=== PATIENT | male | born 1945 | race Caucasian/White ===

== ENCOUNTER 2019-06-09 20:09 | Inpatient (IN) ==
[2019-06-09] MEDS ORDERED: HUMULIN R (PARKWAY) SUBQ ONE (21:05)
[2019-06-09] MEDS ORDERED: CATAPRES PO PRN (21:07)
[2019-06-09 21:13] LABS: BASO# 0.03 X1000 (0.0-0.2); BASO% 0.4 % (0.0-0.8); EOS# 0.01 X1000 (0.0-0.7); EOS% 0.1 % (0.0-10.0); HEMATOCRIT 37.7 % (42.0-52.0); HEMOGLOBIN 12.7 g/dL (14.0-18.0); LYMPH# 1.35 X1000 (1.2-3.4); LYMPH% 17.6 % (20.5-51.1); MCH 29.3 PG (27-31); MCHC 33.7 g/dL (33-37); MCV 86.9 FL (81-99); MONO# 0.35 X1000 (0.11-0.59); MONO% 4.6 % (1.7-9.3); MPV 9.3 FL (7.4-10.4); NEUT# 5.94 X1000 (1.4-6.5); NEUT% 77.3 % (42.2-75.2); PLT 275 X1000 (130-400); RBC 4.34 XMIL (4.7-6.1); RDW 13.3 % (11.5-14.5); WBC 7.68 X1000 (4.8-10.8)
[2019-06-09 21:27] LABS: CALCIUM 8.5 mg/dL (8.8-10.2); CREATININE 3.3 mg/dL (0.7-1.2); POTASSIUM 4.3 mmol/L (3.5-5.1)
[2019-06-10] MEDS: ZOFRAN IV PRN ×2 (02:08→12:37)
[2019-06-10] MEDS ORDERED: SODIUM CHLORIDE 0.9% INJ ONE (05:12)
[2019-06-10] MEDS ORDERED: PHENERGAN IV ONE (05:12)
[2019-06-10] MEDS ORDERED: 1/2 NS 1,000 ML IV SCH (05:15)
[2019-06-10] MEDS ORDERED: HUMULIN R (PARKWAY) SUBQ SCH (08:00)
[2019-06-10] MEDS ORDERED: ZYLOPRIM PO SCH (09:00)
[2019-06-10] MEDS ORDERED: CRESTOR PO SCH ×2 (09:00→21:00)
[2019-06-10] MEDS ORDERED: ASPIRIN PO SCH (09:00)
[2019-06-10] MEDS ORDERED: APRESOLINE PO SCH ×2 (09:00→15:00)
[2019-06-10 09:16] LABS: BASO# 0.01 X1000 (0.0-0.2); BASO% 0.1 % (0.0-0.8); HEMATOCRIT 41.7 % (42.0-52.0); HEMOGLOBIN 13.8 g/dL (14.0-18.0); IMM GRAN# 0.02 X1000 (0.0-0.04); IMM GRAN% 0.2 % (0.0-0.5); LYMPH# 1.33 X1000 (1.2-3.4); LYMPH% 11.3 % (20.5-51.1); MCHC 33.1 g/dL (33-37); MCV 87.6 FL (81-99); MONO# 0.19 X1000 (0.11-0.59); MONO% 1.6 % (1.7-9.3); MPV 9.6 FL (7.4-10.4); NEUT# 10.17 X1000 (1.4-6.5); NEUT% 86.8 % (42.2-75.2); PLT 286 X1000 (130-400); RBC 4.76 XMIL (4.7-6.1); RDW 13.7 % (11.5-14.5); WBC 11.72 X1000 (4.8-10.8)
[2019-06-10 09:53] LABS: ALBUMIN 4.2 g/dL (3.5-5.0); CALCIUM 9.1 mg/dL (8.8-10.2); CREATININE 3.5 mg/dL (0.7-1.2); POTASSIUM 4.5 mmol/L (3.5-5.1); TOTAL BILIRUBIN 0.3 mg/dL (0.20-1.00); TOTAL PROTEIN 7.4 g/dL (6.3-8.3)
[2019-06-10 11:19] LABS: URINE SOURCE VOIDED
[2019-06-10] MEDS ORDERED: APRESOLINE IV PRN (11:21)
[2019-06-10] MEDS ORDERED: ASPIRIN PR ONE (11:22)
[2019-06-10 11:24] LABS: BILIRUBIN URINE NEGATIVE (NEGATIVE); BLOOD URINE TRACE (NEGATIVE); CLARITY CLEAR (CLEAR); COLOR YELLOW; KETONE URINE 2+(Moderate) mg/dL (NEGATIVE); LEUKOCYTES URINE NEGATIVE (NEGATIVE); NITRITE URINE NEGATIVE (NEGATIVE); SP GRAVITY URINE 1.015; UROBILINOGEN URINE NORMAL
[2019-06-10 11:28] LABS: URINE BACTERIA 1+ /HFP; URINE CAST NONE SEEN /LPF; URINE EPITHELIAL CELLS <10 /HPF (<10); URINE RBC <10 /HPF (<10); URINE WBC <10 /HPF (<10); URINE YEAST NONE SEEN /HPF
[2019-06-10 11:29] LABS: URINE CRYSTAL NONE SEEN /HPF
[2019-06-10 11:53] LABS: TSH 0.75 uIUmL (0.27-4.20)
[2019-06-10] MEDS ORDERED: SODIUM CHLORIDE 0.9% INJ SCH (12:00)
--- NOTE | 2019-06-10 12:26 | HISTORY AND PHYSICAL ---
ADDENDUM: I saw the patient [id number] and agree with the assessment and plan of nurse practitioner, Chio Velasco. This is a 74-year-old gentleman who was in his usual health up until this past Tuesday, 2 days ago, when he had a significant headache and generalized weakness. Yesterday morning, his was unable to wake him up and he was having altered mental status with elevated blood pressure after which he was brought into the emergency room. He has been having altered mental status and confusion, along with slight weakness on his left side. Also, he has a bruit in his left carotid and has a history of chronic kidney disease. I believe he is having acute ischemic stroke for which we are going to transfer him to [facility] and obtain neurology consultation with Dr. Cheney. He will be placed on aspirin and control his blood pressure. Supportive care will be provided and further recommendations will be as per hospital course. cc: Galen Rucker MD
[2019-06-10] MEDS: PROTONIX IV SCH (12:37)
[2019-06-10 14:30] LABS: OCCULT BLOOD 1 NEGATIVE (NEGATIVE)
--- NOTE | 2019-06-10 16:59 | HISTORY AND PHYSICAL ---
CHIEF COMPLAINT: Altered mental status, generalized weakness, nausea, vomiting, diarrhea, abdominal pain and high blood pressure. HISTORY OF PRESENT ILLNESS: This is a 74-year-old gentleman with a history of hypertension, insulin-dependent diabetes mellitus, chronic kidney disease as well as CAD status post stents. He presented to the emergency room initially at 10 o'clock on June 09 after being confused and lethargic with hypertension. The states that the patient underwent a colonoscopy on June 07, was his normal self until Tuesday.He ate a few bites for supper, complained of abdominal pain and went to bed. Tuesday morning he was still in bed, asleep at 8am,which is unusual for him. She had a very hard time waking him up. He only ate a few bites of breakfast in bed, as he wouldnt get up. . When she attempted to give him his medicines he became agitated, kept asking for 2 white pills,looking for them everywhere. She reports a BP 200/120at this time. She reports having to dress him in the bed and hold him up and assist him to walk to the car. On arrival to the ER, he complained of abdominal pain and nause, vomiting twice in the emergency room. On arrival to the emergency room initially blood pressure is 226/100, he received a total of 60 mg of labetalol. Pressures decreased, CT scan of the head revealed nothing acute. and he was discharged home with a prescription for clonidine and an increase in his Inderal. The stated that on discharge, he was confused, unable to stand or walk unassisted, requiring assistance to walk to his car and back into their house. At 6pm, she checked on him, he was once again difficult to wake,confused and agitated. Therefore, they returned to the ER, he continued to complain of nausea, vomiting and abdominal pain and he had episodes of being altered throughout this time. At the time of my exam, the patient is s/p Phenergan. He is sleeping and snoring. Difficult to arouse. PAST MEDICAL HISTORY: 1. Wdh-iwvazkd-gikjvbeuv diabetes mellitus. 2. Hypertension. 3. Chronic kidney disease with a reported baseline creatinine of 3 to 3.1. 4. Coronary artery disease status post PCI. 5. Chronic pain. 6. Hypertension. PAST SURGICAL HISTORY: Cholecystectomy, cervical fusion and shoulder surgery. SOCIAL HISTORY: He is lives with his . She denies any alcohol, tobacco or illicit drug use. ALLERGIES: No known drug allergies. HOME MEDICATIONS: A list will be obtained by the nursing staff and once verified will review and restart as appropriate. REVIEW OF SYSTEMS: Unable to obtain from the patient. PHYSICAL EXAMINATION: This is a 74-year-old gentleman who is lying in the bed sleeping and snoring in no distress. VITAL SIGNS: Blood pressure is 151/61 with a heart rate of 79, respirations are 16, temperature is 98.1 degrees axillary with room air saturations 96%. HEENT: Pupils are 3mm equal, round, react to light. Sclerae anicteric. Head is normocephalic, atraumatic. Mucous membranes are moist. NECK: Supple with trachea midline. CARDIOVASCULAR: Regular rate and rhythm. S1 and S2 are appreciated. He has no lower extremity edema with peripheral pulses palpable x4 extremities. PULMONARY: Breath sounds are clear with no increased work of breathing noted. Chest rises and falls symmetric with respiration. GASTROINTESTINAL: Abdomen is soft, nondistended with bowel sounds in all 4 quadrants. : Deferred at this time. SKIN: Warm and dry. NEUROLOGIC: The patient has had Phenergan prior. He is asleep. He is snoring. He moves extremities at random and all 4 extremities withdraw from pain. LABS: WBC is 7.6 with hemoglobin 12.7, hematocrit 37.7 and platelets 275,000. Sodium 134, potassium 4.4, CO2 18, BUN 38, creatinine 3.2 with a glucose of 197. Urinalysis is essentially negative. Urine drug screen was none detected. CT of the head on 06/09/2019 at 12:41 revealed a negative exam. No intracranial mass or hemorrhage. Skull is intact, sinuses and mastoid and middle ears are clear . Chest x-ray on 06/09/2019 at 12:42 negative exam. Lungs are normally expanded and clear. Heart size and mediastinal contours are normal, no pneumothorax or pleural effusion. ASSESSMENT AND PLAN: 1. Hypertension. BP are in the 150/60-80 range Will monitor and treat as appropriate. 3. Non-insulin dependent diabetes mellitus. Pattern blood glucose with sliding scale insulin. 4. Acute kidney injury in the setting of chronic kidney disease. The reports a baseline creatinine of 3 to 3.1. check urine electrolytes, hydrate, hold renal toxic medications, renal dose as appropriate and trend electrolytes magnesium and phosphorus and IV hydration. 5. History of coronary artery disease aware. 6. History of chronic pain aware. 7. Abdominal pain, will reassess once more awake. NPO 8. Nausea and vomiting - Zofran, NPO 9. Agitation and confusion - neuro checks, Telemetry Neuro checks Refrain from further Phenergan Plan was discussed with Dr. Rucker. Further treatments pending hospital course. Dictated by KELVIN Barry for Galen Rucker MD cc: KELVIN Barry MD [facility]
[2019-06-10] MEDS: HUMULIN R SUBQ SCH ×2 (17:41→21:08)
[2019-06-10] MEDS: NS 1,000 ML IV SCH (18:10)
--- NOTE | 2019-06-10 18:10 | Diag Imaging Result Doc PS360 ---
EXAM: CHEST-PORTABLE - 06/10/2019 HISTORY: dyspnea TECHNIQUE: Portable chest COMPARISON: 06/09/2019 FINDINGS: Heart size is normal. There is mild subsegmental atelectasis at the left base. Lungs otherwise appear clear. There is no pleural effusion or pneumothorax identified. IMPRESSION: Mild subsegmental atelectasis at left base. No other evidence of acute disease. Electronically signed by Jose L Bolden 06/10/2019 6:08 PM
[2019-06-10 18:58] LABS: UR CREAT RANDOM < 4.2 mg/dL (14-26); UR PROT RANDOM < 4.0 mg/dL; UR SODIUM < 10 mmoll
--- NOTE | 2019-06-10 19:48 | GASTROENTEROLOGY CONSULTATION ---
DATE: 06/10/2019 GASTROENTEROLOGY CONSULTATION: REQUESTING PHYSICIAN: Dr. Sanford. PRIMARY CARE DOCTOR: He is a outside physician at [place], [place]. REASON FOR CONSULTATION: Nausea, vomiting, and abdominal pain. HISTORY OF PRESENT ILLNESS: Mr. Schuster is a 74-year-old male, who was admitted on 06/09/2019 to [facility] for altered mental status, confusion, generalized weakness, nausea, vomiting, diarrhea, abdominal pain, and hypertensive urgency. He was transferred to [facility] for consultation with Neurology. According to the patient's , the patient had norovirus in December. At that time, he got dehydrated, and he was admitted in the hospital in [place] for a few days. He was hydrated. He was taken off his blood pressure medicines in December 2018. His blood pressure started to creep up in February, and he was started on medicines per his primary care doctor. He initial use of antihypertensives did not control his blood pressure well. They were working with outpatient provider to help manage his blood pressure. He had a colonoscopy done on with Dr. Dutton. He had 3 polyps removed. Post colonoscopy, he did well for and Tuesday. On Tuesday, he started having some symptoms of weakness and not feeling right. His blood pressure was creeping up. He was initially sent to [place] [facility] but was discharged with adjustment of his antihypertensives. His symptoms continued to worsen. He continued to feel weak and had confusion. He was brought back to the ER after talking to his primary care doctor. In the ER, his blood pressure was noted to be 226/100. He was given IV labetalol. At that time, he had nausea and 1 episode of vomiting. He also complained of abdominal discomfort which improved. He denied any vomiting blood or noting blood in the stools. PAST MEDICAL HISTORY: Noninsulin-dependent diabetes mellitus, hypertension, chronic kidney disease, coronary artery disease, status post PCI, chronic pain, hypertension. PAST SURGICAL HISTORY: Cholecystectomy, cervical fusion, and shoulder surgery. Colonoscopy on on 06/07/2019. Had 3 polyps. SOCIAL HISTORY: He is . He lives with his . He has a very supportive family at bedside. No history of alcohol, tobacco, or illicit drugs. ALLERGIES: No known drug allergies. MEDICATIONS: In the hospital include aspirin 3 mg once daily rectally. Sliding scale Humulin R. Normal saline 100 mL per hour. Zofran 4 mg IV every 4 hours as needed. Protonix IV once daily 40 mg. Labetalol 10 mg IV every 4 hours as needed. The patient is currently n.p.o. REVIEW OF SYSTEMS: Denies any fevers, rigors, chills, chest pain, shortness of breath, dyspnea. Denies any vomiting blood. Did have 1 episode of nausea, vomiting, and abdominal discomfort which has improved. Denies any blood in the stools. Denies any major arthritis. Denies any black stools. He did have confusion on admission, but it improving.Vital signs: Temperature of 98.3, pulse rate of 93, respiratory rate or 17, blood pressure 170/86, saturating 98% on room air. Body weight of 160 pounds 5 ounces. BMI 24.4 kg/m2. General Appearance: Moderately built, moderately nourished, lying in bed, in no acute distress. HEENT: No pallor. No icterus. Pupils equal and reactive to light. Neck: Supple. Abdomen: Soft, nontender, nondistended. No guarding or rebound. Extremities: No cyanosis or clubbing. Neurologic: Alert, awake, and oriented x3. LABORATORY DATA: Hemoglobin and hematocrit are 13.8 and 41.7, white count of 11.72, platelet count of 286,000. Sodium 140, potassium 4.5, chloride 103, bicarb of 16, anion gap 21, BUN of 41, creatinine 3.5, glucose of 216, calcium 9.1. Total bilirubin is 0.3, AST 12, ALT 10, alkaline phosphatase 60, total protein 7.4, albumin of 4.2, TSH 0.75, B12 567. Urinalysis with 3+ protein, 2+ ketones, 3+ glucose. Stool culture was negative. Chest x-ray done today showed mild subsegmental atelectasis left base. No evidence of any acute disease. CT of the head was done yesterday which showed negative exam. IMPRESSION AND PLAN: 1. Hypertensive urgency likely contributed to nausea and vomiting. It is being managed by the primary team. His blood pressure has improved. Neurology consultation has been placed. We need to rule out TIA or early stroke. 2. Nausea and vomiting. We will continue on IV fluids and IV antiemetics and IV PPIs. Hopefully with resolution of hypertensive urgency, nausea and vomiting will continue to improve. 3. Abdominal pain which is improved also. It could be secondary to nausea and vomiting. At this moment patient denies any abdominal pain. 4. Diabetes mellitus. He is on sliding scale insulin. 5. Acute kidney injury on top of chronic kidney disease. Continue follow with hydration and continue to follow daily labs per the primary care team. 6. History of coronary disease, aware. 7. Colon polyps at the last colonoscopy 3 days ago. We will obtain the records. 8. GI prophylaxis. PPIs. The above plan was discussed with the patient and family at bedside. All questions were answered. If the patient develops any recurrent nausea, vomiting, or abdominal pain, then we can pursue an EGD. We will be available as needed. Please call with any further questions. Patient will follow up in the clinic in 2 weeks of discharge. Thank you for allowing us to participate in the care of the patient. cc: Jesus Tejada MD
--- NOTE | 2019-06-10 19:55 | EKG Report ---
Test Performed on : 06/10/2019 6:32:56 PM Test Reason : stroke Blood Pressure : / mmHG Vent. Rate : 083 BPM Atrial Rate : 083 BPM P-R Int : 114 ms QRS Dur : 090 ms QT Int : 386 ms P-R-T Axes : -01 022 063 degrees QTc Int : 453 ms Normal sinus rhythm. Nonspecific ST abnormality Abnormal ECG When compared with ECG of 09-JUN-2019 10:51, (Unconfirmed) Nonspecific T wave abnormality, improved in Anterolateral leads Confirmed by Geovanni Arroyo MD ([id number]) on 06/12/2019 8:29:45 AM
[2019-06-10] MEDS: LABETALOL IV PRN (21:45)
--- NOTE | 2019-06-10 22:07 | Diag Imaging Result Doc PS360 ---
EXAM: CT ABDOMEN/PELVIS W/O CONTRAST - 06/10/2019 HISTORY: Abdominal pain s/p colonoscopy TECHNIQUE: CT abdomen/pelvis without contrast. No contrast administered per request of the referring provider. COMPARISON: None. FINDINGS: There is no evidence of bowel obstruction. The appendix is unremarkable. There is mild colonic diverticulosis. There is no evidence of diverticulitis. There is no extraluminal gas, abscess, or free air identified. There is no free fluid identified. There are no substantial abnormalities of the liver, spleen, adrenal glands, or pancreas identified. The gallbladder surgically absent. There is no renal stone or hydronephrosis identified. There is a small fat-containing umbilical hernia. There are atherosclerotic calcifications noted. There are lumbar spine degenerative changes noted. There is a Gary catheter in urinary bladder. There are small diverticuli at the anterior superior urinary bladder. IMPRESSION: No bowel obstruction. Mild colonic diverticulosis. No evidence of diverticulitis. No evidence of bowel perforation. This exam was performed using automated exposure control, adjustment of mA or kV according to patient size, and/or use of iterative reconstruction technique. Electronically signed by Jose L Bolden 06/10/2019 10:04 PM
[2019-06-11] MEDS: NS 1,000 ML IV SCH ×2 (05:56→17:00)
[2019-06-11] MEDS: HUMULIN R SUBQ SCH ×4 (05:59→21:28)
[2019-06-11 07:24] LABS: BASO# 0.03 X1000 (0.0-0.2); BASO% 0.2 % (0.0-0.8); EOS# 0.01 X1000 (0.0-0.7); EOS% 0.1 % (0.0-10.0); HEMATOCRIT 36.6 % (42.0-52.0); HEMOGLOBIN 12.6 g/dL (14.0-18.0); IMM GRAN# 0.02 X1000 (0.0-0.04); IMM GRAN% 0.2 % (0.0-0.5); LYMPH# 2.84 X1000 (1.2-3.4); LYMPH% 21.5 % (20.5-51.1); MCH 29.9 PG (27-31); MCHC 34.4 g/dL (33-37); MCV 86.7 FL (81-99); MONO# 0.85 X1000 (0.11-0.59); MONO% 6.4 % (1.7-9.3); MPV 9.6 FL (7.4-10.4); NEUT# 9.44 X1000 (1.4-6.5); NEUT% 71.6 % (42.2-75.2); PLT 279 X1000 (130-400); RBC 4.22 XMIL (4.7-6.1); RDW 13.8 % (11.5-14.5); WBC 13.19 X1000 (4.8-10.8)
[2019-06-11 07:43] LABS: CHOLESTEROL 146 mg/dL (0-200); HDL 26 mg/dL (35-55); LDL 78 mg/dL; TRIGLYCERIDES 212 mg/dL (39-160); VLDL 42 mg/dL
[2019-06-11 07:45] LABS: MAGNESIUM 1.8 mg/dL (1.5-2.7)
[2019-06-11 07:53] LABS: ALB/GLOB RATIO 1.2; ALBUMIN 3.4 g/dL (3.5-5.0); CALCIUM 8.6 mg/dL (8.8-10.2); CREATININE 3.2 mg/dL (0.7-1.2); POTASSIUM 4.2 mmol/L (3.5-5.1); TOTAL BILIRUBIN 0.33 mg/dL (0.20-1.00); TOTAL PROTEIN 6.2 g/dL (6.3-8.3)
[2019-06-11] MEDS ORDERED: ASPIRIN PR SCH (09:00)
--- NOTE | 2019-06-11 10:30 | NEPHROLOGY CONSULTATION ---
DATE: 06/11/2019 REASON FOR ADMISSION: Altered mental status, weakness, nausea, vomiting, diarrhea, uncontrolled blood pressure. REASON FOR CONSULTATION: Chronic kidney disease, assist with management. HISTORY OF PRESENT ILLNESS: This is a 74-year-old gentleman with a history of hypertension, insulin-dependent diabetes, chronic kidney disease, likely stage IV with a baseline creatinine of around 3, with a fairly recent history of acute kidney injury on chronic kidney disease. He underwent a colonoscopy on the . About 24 hours later, he started having some abdominal pain and the following morning had some altered mental status. He was brought to the emergency room at [place], was treated for some dehydration and discharged. At home, his status worsened. He was brought to the ER at [facility], was noted to have a blood pressure of 226/100. He continued with confusion and agitated and was admitted to the hospital for further workup and treatment. Today when I see him, his daughter is at the bedside with him and indicates to me that he is still not clear as far as his mental status is concerned. The patient though is able to tell me that he has known about chronic kidney disease for at least 4 years. He is followed by a fastener technologist in the in [facility]. He states that earlier this year, he had an episode of rotavirus and his creatinine shabnam significantly during that point but that it stabilized. He was able to be discharged and that he has had a creatinine of around 3 for a long time. He continues with some nausea and decreased appetite today. He has had IV fluids infusing overnight. His creatinine on admission was 3.5, today 3.2. Urine output: He made about 600 mL from admission last night through today. PAST MEDICAL HISTORY: As above. Also with coronary artery disease and chronic pain. PAST SURGICAL HISTORY: He has had a cholecystectomy, cervical fusion, and shoulder surgery. ALLERGIES: None. MEDICATIONS: Home medications are currently listed as 1. Aspirin. 2. Glipizide. 3. Proctozone. 4. Crestor. 5. Allopurinol. 6. Apresoline. 7. Propranolol. 8. Clonidine. The patient denies ever being on RAAS therapy. FAMILY HISTORY: He has a brother with a solitary kidney. SOCIAL HISTORY: No ETOH, tobacco or illicit drug use. He is and lives with his . He is currently in the process of moving from one of his houses in [place] over to the [place] area. REVIEW OF SYSTEMS: Pertinent positives noted above in the HPI, primarily nausea, vomiting, altered mental status. PHYSICAL EXAMINATION: Vital Signs: Temperature 98.3 degrees, pulse 72, respiratory rate 16, blood pressure 126/69. Intake 600 mL, output 1.2 L. HEENT: Normocephalic, atraumatic. ALIOSN. Neck: Supple. No JVD. Cardiovascular: Regular rate and rhythm. Systolic murmur. Pulmonary: Clear bilaterally. Abdomen: Soft, positive bowel sounds. : Gary catheter. Moderately yellow urine. Extremities: No clubbing, cyanosis, or edema. Integumentary: Skin is warm and dry. Neurologic: Grossly nonfocal although family indicates some confusion. LABORATORY DATA: WBC of 13.1, hemoglobin 12.6. Sodium 141, potassium 4.2, CO2 16, BUN 55, creatinine 3.2. ASSESSMENT AND PLAN: 1. Chronic kidney disease stage 4 at baseline by report. The patient's other labs are in targeted range aside from some moderate acidosis. I will not add sodium bicarbonate orally today secondary to his nausea and vomiting. He has been fairly stable during hospitalization. He does have intravenous fluids infusing at this time and if he does not have some improvement in the next 24 hours, we will implement IV bicarbonate therapy. 2. Proteinuria. His urine did indicate the patient with 3+ protein, 2+ ketones, 3+ glucose. Unclear as far as why the patient is not on RAAS therapy, however his blood pressure at this time has been well controlled after admission to the hospital since about midnight last night. We will make no changes today. We will defer this to his primary fastener technologist. 3. Altered mental status. His Phenergan has been held. He underwent imaging and is to have some additional imaging regarding this. We will defer to primary. Dictated by KELVIN Gasca for Elvis Butler MD Face to face encounter, data reviewed, discussed with Gustavo Prieto on 06/11/19. I agree with the above assessment and plan of care. cc: Elvis Butler MD [facility]
--- NOTE | 2019-06-11 10:46 | GASTROENTEROLOGY PROGRESS NOTE ---
DATE: 06/11/2019 SUBJECTIVE: Patient resting in bed. He is feeling better. Denies any abdominal pain. Denies any nausea. He moved his bowels once today. I reviewed the CT scan. It showed evidence of diverticulosis, no bowel obstruction and there is a small fat containing umbilical hernia. There are atherosclerotic arthrosclerotic calcifications noted and evidence of lumbar spine degenerative changes noted. There is mild colonic diverticulosis, no diverticulitis and there are small diverticula at the anterior superior urinary bladder noted. PHYSICAL EXAMINATION: Vital signs: Reviewed. General: The patient is lying in bed, in no acute distress. HEENT: No Pallor No icterus. Pupils equal, reactive to light. Neck: Supple. Abdomen: soft, Non tender tympanic on percussion. No rebound or guarding. Extremities: No cyanosis, clubbing. Neurologic: He is alert and awake and oriented x3. IMPRESSION AND PLAN: 1. Hypertensive urgency likely contributed nausea and vomiting. This is being managed by the primary team. 2. Rule out cerebrovascular accident or transient ischemic attack. In this regard neurology has been consulted. 3. Nausea and vomiting has resolved. 4. Abdominal pain is improved. No evidence of acute pathology on imaging. 5. Colonic diverticulosis. The patient will take Metamucil once daily. We will start today. 6. History of colon polyps. Patient to follow up with Dr. Dutton in 3 weeks of discharge to discuss the pathology results. 7. Acute kidney injury on top of chronic kidney disease. Continue to follow. Nephrology has been consulted. 8. History of coronary disease, aware. 9. Gastrointestinal with proton pump inhibitor. 10. We will sign off at this time. We will be available if needed. The above plan of care was with the patient and family at bedside. All questions answered. Please call us with any further questions. cc: MD Nicole Monroe MD MTDD
--- NOTE | 2019-06-11 11:54 | Diag Imaging Result Doc PS360 ---
EXAM: MRI BRAIN W/O CONTRAST 06/11/2019 HISTORY: stroke TECHNIQUE: T1 sagittal and axial, axial T2, FLAIR, DWI and coronal gradient echo. COMMENT: There is no evidence of mass effect, bleed, or abnormal extra-axial fluid collection. There is a small subcortical focus of increased T2-weighted signal intensity in the left anterior parietal convexity. There is no evidence of restricted diffusion. There are no previous MRI studies available for comparison. IMPRESSION: Minimal chronic microvascular change. No evidence of acute disease. Electronically signed by Melo Perez 06/11/2019 11:52 AM
--- NOTE | 2019-06-11 11:58 | Diag Imaging Result Doc PS360 ---
EXAM: MRI LUMBAR SPINE W/O CONTRAST 06/11/2019 HISTORY: back pain/radiculopathy TECHNIQUE: T1-T2 and STIR sagittal, T1 and T2 axial COMMENT: No intrathecal masses are demonstrated. There is some Modic type II change in the lower endplate of L2. At the T12-L1 level, there is no evidence of spinal or foraminal stenosis. At L1-2 there is mild disc bulge without evidence of spinal or foraminal stenosis. At L2-3 there is disc space narrowing and posterior osteophyte formation with a mild degree of spinal stenosis. At the L3-4 level there is some disc bulge without evidence of significant spinal or foraminal stenosis. At L4-5 there is marked disc bulge with moderate spinal stenosis and foraminal stenosis slightly worse on the left than the right. At the L5-S1 level there is disc bulge with mild impingement on the exiting right L5 nerve root. There is no spinal stenosis. IMPRESSION: Degenerative disc disease with spinal stenosis at L2-3 and L4-5. Foraminal stenosis as described above. Electronically signed by Melo Perez 06/11/2019 11:55 AM
[2019-06-11] MEDS: PROTONIX IV SCH (12:28)
[2019-06-11] MEDS: LABETALOL IV PRN (12:59)
--- NOTE | 2019-06-11 13:09 | ECHO REPORT ---
ORDER DATE: 06/10/2019 INTERPRETING PHYSICIAN: Dr. Fidel Casas. ECHOCARDIOGRAPHIC MEASUREMENTS: 1. Interventricular septum: 1.1 cm. 2. Left ventricular posterior wall: 1.0 cm. 3. Diastolic diameter: 4.3 cm. 4. Left atrium: 3.9 cm. 5. Aorta: 3 cm. SUMMARY OF THE 2-DIMENSIONAL IMAGIN. There is mild left atrial enlargement. 2. Normal left ventricular cavity size. Estimated ejection fraction of 65%. There is mild diastolic dysfunction. 3. Aortic valve leaflets are sclerosed, trileaflet. 4. Mitral valve was normal. 5. Tricuspid valve was normal. Peak velocity across the aortic valve was 2.2 m/sec. 6. There is no aortic stenosis. There is aortic sclerosis. There is no aortic regurgitation. 7. There is mild mitral regurgitation. 8. Mild tricuspid regurgitation. Peak velocity across the tricuspid valve was 2.8 m/sec. 9. Pulmonary systolic pressure of 43 mmHg. 10. There is no pericardial effusion. cc: MD Chio Bruno CRNP
[2019-06-11] MEDS: APRESOLINE PO SCH ×2 (14:24→16:28)
[2019-06-11] MEDS: ASPIRIN EC PO ONE ×2 (14:25→16:29)
--- NOTE | 2019-06-11 16:12 | CONSULTATION ---
DATE OF CONSULTATION: 06/11/2019 HISTORY: Mr. Schuster is 74 years old, and there is report of transient encephalopathy. History from the patient is that he had colonoscopy four days ago and felt well 3 days ago. He remembers seeming not himself 2 days ago, arguing at one point with about going to the emergency room, and later being in the emergency room. According to family at the bedside now, 2 days ago, blood pressure was elevated and he seemed not himself. At times, he seemed a little bit paranoid. He reported thinking was discussing things behind his back and making plans with his doctor that were not being told to him. At one point, the son noted the patient to be difficult to keep alert. He seemed transiently better for a few hours after difficult Gary catheter placement. He seems much better today, possibly almost back to baseline. There is a report that blood pressure was significantly elevated, systolic 210 measured at home associated with onset of this mental change. There is a report that he had some extremes of blood pressure several months ago associated with rotavirus infection, but he did not have altered consciousness or personality change then. There is no history of diagnosed stroke, serious head injury, diagnosed seizure, or other neurologic event. There is no history of prior cognitive impairment. PAST MEDICAL HISTORY: Remarkable for hypertension, diabetes mellitus, kidney failure, ischemic heart disease, and coronary stenting. He had not made any recent medication changes. There may have been a recent pain medicine dose, something he has used in the past, but there is no history of abuse of medication or overuse. We did not have urine drug screen this admission. LABORATORY: Lab showed WBC 74375. BUN has climbed from 33 to 55. Blood sugars have ranged 100s to 200s. Initial noncontrast CT of the head was unremarkable. Brain MRI was unremarkable today. Lumbar MRI shows diffuse degenerative changes with mild impingement of the right L5 nerve root. He has been afebrile. Initial heart rate was 102, mostly heart rate of 80s-90s since admission. Systolic blood pressures have ranged 120s to 190s. I reviewed 's cell phone record of blood pressures over the last few weeks at home, mostly 140s-150s systolic until these last few days. PHYSICAL EXAMINATION: General: On exam, Mr. Schuster is awake, alert, attentive, completely oriented. He paused to think before answering correctly regarding the date. He named the president easily. Speech is not dysarthric. Language function is intact. Remote memory is good. HEENT: Head and neck are unremarkable. There is no meningismus. Visual quinonez are full. Extraocular movements are full. Facial motility is symmetric. Gag is intact. Tongue is midline. Hearing is fair. Shoulder shrug is equal. Strength is normal in the arms and legs. He did well on [id number] testing. I did not test his gait. IMPRESSION: Transient neurologic change, some history sounds like obtundation, some history sounds like paranoia. There was associated significant blood pressure elevation. In a man in this age group with kidney failure, there may have been hypertensive urgency or condition approaching hypertensive encephalopathy. Negative MRI is quite reassuring. He never had altered consciousness or keira seizure. He appears to be nearly back to baseline now. I do not have any urgent suggestion. I believe that carotid ultrasound has been done with report pending. If there is not a major stenosis identified on that, I will not have any other suggestion now. We might consider repeat brain imaging and EEG if he has more episodes later. I encouraged him to continue keeping a record of his blood pressures and to continue aggressive management of his risk factors for cerebrovascular ischemic problems. We discussed potential difficulty treating blood pressure with his kidney failure. I will be glad to see Mr. Schuster again if needed. Thank you for asking Neurology to see him here. cc: MD JENNYFER Muhammad III
[2019-06-11] MEDS ORDERED: GLUCOTROL PO SCH (17:00)
--- NOTE | 2019-06-11 17:15 | PROGRESS NOTE ---
DATE: 06/11/2019 SUBJECTIVE: The patient is awake and alert. He did have periods of confusion overnight where he was hallucinating, according to the patient's daughter. OBJECTIVE: Vital Signs: Temperature maximum 98.3 degrees, blood pressure 181/94, heart rate 83, respirations 16, O2 saturation is 96% on room air. General: This is a chronically ill-appearing elderly male, lying in bed in no acute distress. Heart: S1, S2 normal. Regular rate and rhythm. Lungs: Clear to auscultation bilaterally. Abdomen: Positive bowel sounds. Soft, nontender, nondistended. Extremities: No edema no cyanosis. Neurologic: The patient is oriented to person and place. He is able to move all 4 extremities. DIAGNOSTIC STUDIES: White blood cell count 13, hemoglobin 12, hematocrit 36, platelets 279,000. Sodium 141, potassium 4.2, chloride 108, CO2 of 16, BUN 55, creatinine 3.2, glucose 163, albumin 3.4. Cholesterol 146, LDL 78. MRI of the brain shows chronic microvascular change. No acute disease. ASSESSMENT AND PLAN: 1. Transient ischemic attack. This was likely secondary to the patient's markedly elevated blood pressure on admission. The patient's mental status has improved. He still has periods of confusion. We will continue to monitor the patient's mental status closely. 2. Bilateral carotid artery stenosis. The preliminary report is showing bilateral carotid stenosis at 60% to 79%. We will continue with aspirin therapy and likely refer the patient to a general surgeon for further evaluation. 3. Acute kidney injury on chronic kidney disease, stage 4. Slightly improved today. We will continue to monitor closely and avoid nephrotoxic agents. Nephrology is following. 4. Constipation. The patient has been started on laxative therapy. 5. Diabetes mellitus, type 2. Continue on sliding scale insulin. 6. Uncontrolled hypertension. The patient's home medications have been restarted. We will monitor the patient's response closely. 7. Metabolic acidosis. We will continue to monitor this closely. 8. DVT prophylaxis. Will start heparin. 9. Physical Therapy has been consulted. cc: Nicole Sanford MD MTDD
[2019-06-11] MEDS ORDERED: COREG PO SCH (21:00)
[2019-06-11] MEDS: MIRALAX PO SCH (21:28)
[2019-06-12] MEDS: NS 1,000 ML IV SCH ×2 (05:09→06:30)
[2019-06-12] MEDS: HUMULIN R SUBQ SCH ×4 (06:31→20:46)
[2019-06-12 07:18] LABS: HEMATOCRIT 36.7 % (42.0-52.0); HEMOGLOBIN 12.3 g/dL (14.0-18.0); MCHC 33.5 g/dL (33-37); MCV 89.5 FL (81-99); MPV 9.6 FL (7.4-10.4); RBC 4.1 XMIL (4.7-6.1); RDW 13.7 % (11.5-14.5); WBC 7.56 X1000 (4.8-10.8)
[2019-06-12 07:38] LABS: ALBUMIN 3.2 g/dL (3.5-5.0); CALCIUM 8.4 mg/dL (8.8-10.2); CREATININE 2.9 mg/dL (0.7-1.2); PHOSPHORUS 3.4 mg/dL (2.7-4.5)
[2019-06-12] MEDS ORDERED: DULCOLAX PR ONE (08:31)
[2019-06-12] MEDS: APRESOLINE PO SCH ×3 (08:48→17:34)
[2019-06-12] MEDS: ASPIRIN PO SCH (08:48)
[2019-06-12] MEDS: METAMUCIL PO SCH (08:49)
[2019-06-12] MEDS: MIRALAX PO SCH ×2 (08:49→20:06)
[2019-06-12] MEDS: LACTULOSE PO SCH ×2 (08:49→20:06)
[2019-06-12] MEDS ORDERED: INDERAL LA PO SCH (09:00)
--- NOTE | 2019-06-12 09:03 | PROGRESS NOTE ---
DATE: 06/12/2019 SUBJECTIVE: The patient is sitting up in a chair. He has been having periods of confusion at night but otherwise states that he feels okay today. OBJECTIVE: Vital Signs: Temperature 97.8 degrees, blood pressure 181/95, heart rate 71, respirations 15, O2 saturation is 95% on room air. Intake 3 L, output 2.5 L. General: This is a chronically ill-appearing, elderly male sitting in a chair, in no acute distress. Heart: S1, S2 normal. Regular rate and rhythm. Lungs: Equal air entry bilaterally. No wheezing. No rales. No rhonchi. Abdomen: Positive bowel sounds. Soft, nontender, nondistended. Extremities: No edema. No cyanosis. Neurologic: The patient is alert and oriented to person, place, and time. Labs: Sodium 140, potassium 4, chloride 109, CO2 of 17, BUN 50, creatinine 2.9, glucose 180. White blood cell count 7.5, hemoglobin 12, hematocrit 36, platelets 221,000. Albumin 3.2. ASSESSMENT AND PLAN: 1. Transient ischemic attack. The patient has no focal neurologic deficits at this time. We will continue on aspirin and continue to try and control the patient's blood pressure. 2. Uncontrolled hypertension. Will adjust the patient's medications. 3. Bilateral carotid artery stenosis. We will consult with the general surgeon for further recommendations. 4. Chronic kidney disease stage 4. Stable. The patient has been advised to follow up with his lecturer of portuguese upon discharge from the hospital. 5. Constipation. We will adjust the laxative regimen. 6. Diabetes mellitus type 2. Continue on sliding scale insulin. 7. Metabolic acidosis. Unchanged. 8. Deep vein thrombosis prophylaxis. We will start the patient on heparin. 9. Disposition. Continue with physical therapy. We will likely plan to discharge the patient home tomorrow if his blood pressure remains stable today. The plan of care was discussed with the patient and his son at the bedside this morning. cc: Nicole Sanford MD MTDD
--- NOTE | 2019-06-12 09:55 | NEPHROLOGY PROGRESS NOTE ---
DATE: 06/12/2019 SUBJECTIVE: Patient is resting in bed. He states he was able to get up to a chair and sit for most of the day yesterday, and has been able to eat. OBJECTIVE: Vital Signs: Temperature 97.8 degrees, pulse 73, respiratory rate 15, blood pressure 161/91. Intake 3 L. Output 2.5 L. General: This is an elderly gentleman resting in bed. He is awake and alert. He does not appear in acute distress. He is alert and oriented x4 today. HEENT: Normocephalic, atraumatic. ALISON. Neck: Supple. He has trace JVD. Cardiovascular: Regular rate and rhythm. There is no murmur. Pulmonary: He is clear bilaterally. He has equal excursion. He is on 2 L nasal cannula. Abdomen: Soft, with positive bowel sounds. Denies tenderness. : Gary catheter. Extremities: No clubbing, cyanosis, or edema. Integumentary: Skin is warm and dry. Lab Data: Pending. ASSESSMENT AND PLAN: Chronic kidney disease stage 4. His renal function through yesterday had been at his historical baseline. No changes are required from our perspective. He does have modest metabolic acidosis but this does not necessitate treatment at this time. yaa Dictated by KELVIN Gasca for Elvis Butler MD Face to face encounter, data reviewed, discussed with Gustavo Prieto on 06/12/19. I agree with the above assessment and plan of care. yaa cc: Elvis Butler MD [facility]
[2019-06-12] MEDS: HEPARIN SUBQ SCH ×2 (10:41→20:05)
[2019-06-12] MEDS ORDERED: COREG PO SCH ×2 (12:30→21:00)
[2019-06-12] MEDS: PROTONIX IV SCH (13:09)
[2019-06-12] MEDS: LABETALOL IV PRN ×2 (13:10→17:34)
--- NOTE | 2019-06-12 16:56 | PROGRESS NOTE ---
DATE: 06/12/2019 SUBJECTIVE: No major overnight events. The at bedside states that the patient is "fine" now, back to baseline. Blood pressures remain an issue. Readings today documented are 161 to 207 systolic over 90s diastolic. He remains afebrile, pulse 60s to 80s. OBJECTIVE: Mr. Schuster is sitting up in bed. Awake, alert and having a normal conversation with me. He follows commands consistently. Left, right and digit distinction preserved. No language disturbance. Pupils equal, round, reactive to bright light. Gaze conjugate. Extraocular movements are full. Face symmetric with equal activation. Tongue is midline. Palate elevates symmetrically. Shoulder shrug is full. No drift. Tone is symmetric in the limbs, strength is preserved in the arms and legs as tested, finger to nose intact. No adventitious movements. DIAGNOSTICS: Normal white count, BUN is 50 with a creatinine of 2.9 which is down from 40 and 3.3 on admission. Blood sugars 160s to 180s. ASSESSMENT AND PLAN: Remains transient neurologic change. Etiology is uncertain. Its temporal relationship with significant blood pressure elevation in recent days in a patient with renal disease does raise the question of hypertensive urgency and encephalopathy, though reported periods of paranoia seem unusual. reports he is back to baseline now which is reassuring, as is the negative brain MRI. His blood pressure continues to be an issue and is being managed by the primary team. I do not have much to add to Dr. Cheney's note from yesterday. If he begins to have confusion again, and especially in the setting of controlled blood pressure, then we may need to do further workup at that time. cc: Svetlana Coats MD MTDD
[2019-06-12] MEDS ORDERED: MYLICON PO ONE (17:44)
--- NOTE | 2019-06-12 18:10 | CONSULTATION ---
DATE OF CONSULTATION: 06/12/2019 Mr. Leonel Schuster is a 74-year-old white male who was admitted with uncontrolled hypertension and nausea. As part of his evaluation, he has undergone carotid study which showed severe disease and we were asked to evaluate him. HOME MEDICATIONS: Allopurinol 100 mg p.o. daily, aspirin 81 mg p.o. daily, glipizide 2.5 mg p.o. b.i.d., Apresoline 100 mg p.o. t.i.d., hydrocortisone, Inderal 160 mg p.o. daily and Crestor 10 mg p.o. daily. PAST MEDICAL HISTORY: He is a diabetic controlled with oral agents. He has high blood pressure, high cholesterol, gout, chronic kidney disease, coronary artery disease status post stent placement. PAST SURGICAL HISTORY: Cholecystectomy, cervical fusion and shoulder surgery. ALLERGIES: No known drug allergies. SOCIAL HISTORY: He lives with his . He denies any tobacco use. REVIEW OF SYSTEMS: A 14-point review of systems was performed and was essentially negative except for the history of present illness. EXAM: Mr. Schuster is an older gentleman sitting in his chair in his room in no acute distress. HEENT: No jaundice. No oral lesions. No cervical or supraclavicular lymphadenopathy. He had no cervical bruit. His heart had a regular rate. Lungs: Were clear to auscultation and percussion bilaterally . Abdomen: Soft, nontender, without palpable mass. Rectal: Exam was not performed. He does have palpable peripheral pulses. No peripheral edema. Neurological: He is alert and oriented x3 and appropriate. Noninvasive carotid study suggested severe carotid artery disease bilaterally in the 60 to 79 percent range. I think when looking at the study, his disease is closer to 60% and I feel that carotid endarterectomy is not indicated at this time. I do not feel that his symptoms causing hospitalization were not related to his carotid arterial disease. I would recommend yearly carotid arterial studies to follow his carotid disease. He needs to eliminate his risk factors which they are medically doing. Right now his blood pressure has been a control problem. I discussed in detail carotid arterial disease with the patient and his at the bedside and they understand yearly carotid studies. I agree with an aspirin a day. cc: Prudencio Pradhan MD
[2019-06-12] MEDS: COREG PO SCH (20:06)
[2019-06-12] MEDS: NORVASC PO SCH (20:06)
[2019-06-12] MEDS ORDERED: NORVASC PO SCH (21:00)
[2019-06-13] MEDS: HUMULIN R SUBQ SCH ×2 (06:04→11:10)
[2019-06-13 07:30] LABS: HEMATOCRIT 36.4 % (42.0-52.0); HEMOGLOBIN 12.4 g/dL (14.0-18.0); MCH 29.8 PG (27-31); MCHC 34.1 g/dL (33-37); MCV 87.5 FL (81-99); MPV 9.7 FL (7.4-10.4); RBC 4.16 XMIL (4.7-6.1); RDW 13.4 % (11.5-14.5); WBC 7.22 X1000 (4.8-10.8)
[2019-06-13 07:44] LABS: ALBUMIN 3.4 g/dL (3.5-5.0); CALCIUM 8.8 mg/dL (8.8-10.2); CREATININE 2.9 mg/dL (0.7-1.2); PHOSPHORUS 3.5 mg/dL (2.7-4.5); POTASSIUM 3.9 mmol/L (3.5-5.1)
[2019-06-13] MEDS: ASPIRIN PO SCH (08:04)
[2019-06-13] MEDS: APRESOLINE PO SCH ×2 (08:04→13:22)
[2019-06-13] MEDS: NORVASC PO SCH (08:04)
[2019-06-13] MEDS: HEPARIN SUBQ SCH (08:05)
[2019-06-13] MEDS: COREG PO SCH (08:05)
[2019-06-13] MEDS: MIRALAX PO SCH (08:07)
[2019-06-13] MEDS: LACTULOSE PO SCH (08:07)
[2019-06-13] MEDS: METAMUCIL PO SCH (08:07)
--- NOTE | 2019-06-13 08:32 | Carotid Study ---
DATE: 06/10/2019 REFERRING PRACTITIONER: Steffi, nurse practitioner. READING PHYSICIAN: Dr. Broussard. DRUM FILLER: Anayeli. INDICATION: Stroke and altered mental status. FINDINGS: There is bilateral irregular calcific-appearing plaque at the takeoff of the internal carotid arteries bilaterally, producing turbulent flow and elevated velocities. INTERPRETATION: Bilateral plaque disease in the internal carotid arteries as described above, with percent stenosis of 60% to 79% bilaterally. This may be approaching hemodynamic significance. cc: MD Chio Gonzalez CRNP
[2019-06-13 11:31] VITALS: BP 113/68
--- NOTE | 2019-06-13 13:47 | NEPHROLOGY PROGRESS NOTE ---
DATE: 06/13/2019 SUBJECTIVE: The patient is sitting up in a chair. No complaints. OBJECTIVE: Vital Signs: Temperature 97.6 degrees, pulse 58, respiratory rate 16, blood pressure 116/67, intake 1 L, output 850 mL. General: Elderly gentleman sitting up in a chair. Awake and alert. No acute distress. HEENT: Normocephalic, atraumatic. ALISON. Conjunctivae pink. Neck: Supple. He has no JVD in the upright position. Cardiovascular: Regular. Pulmonary: Clear bilaterally. Equal excursion. Abdomen: Soft, positive bowel sounds. : Voiding. Extremities: No clubbing, cyanosis, or edema. Skin: Warm and dry. LAB DATA: Sodium 140, potassium 3.9, CO2 18. Creatinine 2.9. ASSESSMENT AND PLAN: 1. CKD stage 4. Renal function remains at his historic baseline. 2. Electrolytes, acid-base balance, anemia. He has metabolic acidosis. Continue to monitor. Would treat if it worsens. He has actually improved over the course of the last 3 days. Dictated by KELVNI Gasca for Elvis Butler MD Face to face encounter, data reviewed, discussed with Gustavo Prieto on 06/13/19. I agree with the above assessment and plan of care. cc: Elvis Butler MD [facility]
--- NOTE | 2019-06-19 04:25 | PROVIDER DOCUMENTATION ---
This chart was entered by Fior Atkinson Scribe, acting as scribe for Gigi Dunham MD. HPI-General Adult - General Chief Complaint: B/P Problems Stated Complaint: RETURN / RECHECK Time Seen by Provider: 06/09/19 20:11 Source: patient, family Allergies/Adverse Reactions: Patient Allergies Allergy/AdvReac Type Severity Reaction Status Date / Time No Known Allergies Allergy Verified 06/09/19 10:11 Home Medications: Home Medication List Medication Instructions Recorded Confirmed Last Taken Type Allopurinol 100 mg PO DAILY 06/09/19 06/09/19 Unknown History Glipizide 2.5 mg PO BID 06/09/19 06/09/19 Unknown History Hydrocortisone [Proctozone-Hc] 30 gm .SEE ORDER BID 06/09/19 06/09/19 Unknown History ROSUVAstatin [Crestor] 10 mg PO DAILY 06/09/19 06/09/19 Unknown History Amlodipine [Norvasc] 5 mg PO BID #180 tab 06/13/19 Unknown Rx Aspirin 325 mg PO DAILY #90 tab 06/13/19 Unknown Rx Carvedilol [Coreg] 25 mg PO BID #180 tab 06/13/19 Unknown Rx Hydralazine HCl 100 mg PO TID #270 tab 06/13/19 Unknown Rx Psyllium Husk [Metamucil] 1 ea PO DAILY #90 cap 06/13/19 Unknown Rx - History of Present Illness -Gen Adult Nature of Presenting Problems: pt is a 74 yr old male presenting with with complaint of nausea, vomiting and elevated blood pressure. reports at 1800 pt BP was 220/100, pt was given Clonidin as prescribed to pt this AM, pt BP came down to 190/90. r eports pt was weak, confused and having difficulty ambulating this evening. pt was seen this AM for HTN, pt discharged after BP improved. reports pt had a "banging" headache yesterday but is resolved today. on exam pt reports nausea and headache resolved. pt has vomited x 2 today, diarrhea x 1. pt at beside demands pt be transferred to [facility] for observation, refuses pt to be kept here for observation. [facility] immediately notified, they are notifying hospitalist of transfer demand. After [facility] refused transfer now demands pt be admitted to ICU. Location of Pain/Injury: reports: none (pt denies any pain) Quality of Pain: reports: none Onset/Duration: reports: this morning Timing: reports: intermittent Context/Activities at Onset: reports: light activity Modifying Factors: improves with: other medication (Klonidine-improved BP) Associated Symptoms: reports: diarrhea (x1), fatigue, headaches, nausea, vomiting (x2), weakness, trouble walking. denies: back/neck pain, chest pain, fever/chills Similar Symptoms Previously?: Yes Recently seen or treated by another doctor?: Yes (seen this AM for similar) Review of Systems - Adult - REVIEW OF SYSTEMS - ADULT Constitutional: reports: patti. denies: chills, fever Eyes: denies: blurred vision, double vision Ears, Nose, Mouth & Throat: denies: ear pain, sinus problem, throat pain Cardiovascular: denies: chest pain, palpitations, syncope Respiratory: denies: cough, shortness of breath Gastrointestinal: reports: diarrhea, nausea, vomiting. denies: abdominal pain Genitourinary: denies: dysuria, frequency Musculoskeletal: reports: muscle weakness. denies: back pain, joint pain, neck pain Integumentary: reports: no symptoms reported Neurological: reports: headache/migraines. denies: dizziness/vertigo, syncope Psychiatric: reports: no symptoms reported Endocrine: reports: no symptoms reported Hematologic/Lymphatic: reports: no symptoms reported Allergic/Immunologic: reports: no symptoms reported All Other Systems: Reviewed and Negative Past History - Adult - PAST MEDICAL HISTORY-ADULT Review of Records: reports: Old Records Reviewed, Nursing Assessment Review, Medications Reviewed, Social history reviewed & non-contributory. Major Childhood Illnesses: reports: denies history Cardiovascular: reports: denies history Respiratory: reports: denies history Gastrointestinal: reports: denies history Obstetrical/Gynecological: reports: denies history Genitourinary: reports: denies history Musculoskeletal: reports: denies history Neurological: reports: denies history Endocrine/Immune: reports: denies history Other Conditions: reports: denies history - IMMUNIZATION STATUS Childhood Immunizations: See Nurse Assessment Flu Vaccine: See Nurse Assessment - FAMILY HISTORY Family History: reviewed, not pertinent - SOCIAL HISTORY Smoking: denies Substance Use: denies Living Situation: family Physical Exam-General - PHYSICAL EXAM-ADULT Initial Vital Signs Reviewed: Yes - CONSTITUTIONAL General Appearance: alert, no apparent distress - EYES Eyes: PERRL/EOMI - HEAD, EARS, NOSE, MOUTH & THROAT HENMT: normocephalic/atraumatic, moist mucous membranes, normal ENT inspection - NECK Neck: non-tender, full range of motion, supple, normal inspection - RESPIRATORY Respiratory: chest non-tender, lungs clear, normal breath sounds, no respiratory distress, no accessory muscle use - CARDIOVASCULAR Cardiovascular: normal peripheral pulses, regular rate, rhythm, no edema, no JVD , no murmur - GASTROINTESTINAL (ABDOMEN) Abdominal Exam: normal bowel sounds, non tender, soft - LYMPHATIC Lymphatic: no adenopathy - MUSCULOSKELETAL Back Exam: normal inspection, no CVA tenderness, no vertebral tenderness Extremity: normal range of motion, non-tender, normal inspection - SKIN Integumentary: normal color, normal turgor, warm/dry - NEUROLOGIC Neurologic: grossly normal - PSYCHIATRIC Psych/Mental Status: normal mood/affect Progress - PLAN OF CARE/RESULTS Progress/Plan/Lab Results: Vital Signs - 8 hr 06/09/19 20:14 Temperature 98.4 F Pulse Rate 102 H Respiratory Rate 20 Blood Pressure 175/68 O2 Sat by Pulse Oximetry 100 Result Diagrams: 06/13/19 06:56 06/13/19 06:56 Departure - Departure Date of Disposition Decision: 06/19/19 Time of Disposition Decision: 04:25 DIAGNOSIS: Transient confusion Hypertension Qualifiers: Hypertension type: unspecified Qualified Code(s): I10 - Essential (primary) hypertension Abdominal pain Qualifiers: Abdominal location: unspecified location Qualified Code(s): R10.9 - Unspecified abdominal pain Disposition: ADMITTED INPATIENT 09 Certified Medical Emergency: Emergent Condition: Stable - Critical Care Note This patient required my direct & personal management of CC.: No Attestation - Physician/ [facility] Attestation Patient care was provided by Advanced Practice Provider:: No The physician spent face to face time with patient:: Yes Advanced Practice Provider documentation review:: Supervising physician onsite and consulted in the evaluation and care of this patient. The physician did have a face to face encounter with the patient. This chart was documented by the indicated scribe, (Fior Atkinson Scribe) and accurately reflects the services I performed and decisions made by me, Gigi Dunham MD, as attested by the provider's signature.
--- NOTE | 2019-06-22 08:01 | DISCHARGE SUMMARY ---
ADMISSION DATE: 06/09/2019 DISCHARGE DATE: 06/13/2019 FINAL DISCHARGE DIAGNOSES: 1. Transient ischemic attack. 2. Accelerated hypertension. 3. Bilateral carotid artery stenosis. 4. Chronic kidney disease stage 4. 5. Constipation. 6. Diabetes mellitus type 2. 7. Metabolic acidosis. CONSULTATIONS: 1. Neurology consultation with Dr. Cheney. 2. Nephrology consultation with Dr. Butler. 3. GI consultation with Dr. Tejada. 4. General Surgery consultation with Dr. Garcia. IMAGIN. Carotid Doppler study which revealed bilateral plaque disease in the internal carotid arteries at 60% to 79% bilaterally which may be approaching hemodynamic significance. 2. Echocardiogram performed on 06/10/2019 which revealed an ejection fraction of 65% with mild diastolic dysfunction. Mild mitral regurgitation. 3. Chest x-ray which revealed atelectasis at the left lung base. 4. A CT of the abdomen and pelvis which revealed mild colonic diverticulosis. 5. Lumbar spine MRI which revealed degenerative disk disease with spinal stenosis at L2-L3 and L4- L5. HOSPITAL COURSE: Mr. Schuster is a 74-year-old male with a history of hypertension, diabetes, and stage 4 chronic kidney disease, who was brought to [facility] with altered mental status and extremely high blood pressure. The patient was initially seen in the ER and ultimately transferred to [facility] for further evaluation and treatment. There was concern about a stroke, and so the stroke workup was initiated. The patient had a brain MRI that revealed no acute disease. Neurology was also consulted for further recommendations. The patient also had an echocardiogram done that revealed an ejection fraction of 65%. The carotid Doppler study did reveal hemodynamically significant stenosis bilaterally with a percentage of 60% to 79%. General Surgery was consulted, and it was recommended that the patient have serial carotid duplex studies done yearly. Nephrology was consulted due to the patient's renal failure. The patient was initially treated with gentle IV fluid hydration, and his creatinine improved to his baseline. The patient was seen by Physical Therapy as well as Occupational Therapy and also Neurology. Adjustments were made to the patient's antihypertensive regimen, and his blood pressure improved. The patient continued to improve clinically and was ultimately cleared for discharge. DISCHARGE MEDICATIONS: 1. Aspirin 325 mg oral daily. 2. Coreg 25 mg oral twice a day. 3. Hydralazine 100 mg oral 3 times a day. 4. Norvasc 5 mg oral twice a day. 5. Metamucil 1 tablet oral daily. 6. Glipizide 2.5 mg oral twice a day. 7. Crestor 10 mg oral daily. 8. Allopurinol 100 mg oral daily. 9. Hydrocortisone 30 g per rectum twice a day. DISCHARGE DIET: 1800 ADA diet, low sodium diet. ACTIVITY: As tolerated. FOLLOWUP INSTRUCTIONS: The patient will need to follow up with his primary care physician in [place]. The patient will also be following up with Dr. Butler as scheduled by his clinic. The patient will also follow up with Dr. Garcia as scheduled by his clinic. cc: Nicole Sanford MD
== END 2019-06-13 14:56 | disposition home or self-care (01) | DRG 69 ==
LOC: P.ED 20:09 → SUATTDRO 21:39 → INTOOBSV 21:39 → P.MEDSURG 21:39 → OBSVTOIN 21:39 → 2N 06-10 14:50
PROVIDERS: ATTEND Internal Medicine